=== PATIENT | male | born 1990 | race American Indian/Alaskan Native ===

== ENCOUNTER 2018-03-30 12:16 | Emergency (ER) | payer SELFPAY ==
[2018-03-30 12:38] VITALS: BP 117/56
[2018-03-30] MEDS ORDERED: MOTRIN PO ONE (13:02)
--- NOTE | 2018-03-30 13:32 | XRay Report ---
RIGHT HAND, 3 views: History: Hand injury. Normal bone mineralization. There is suggestion of a small avulsion fracture from the anterior base of the middle phalanx of the third digit. This is only identified on the lateral image. The remaining bony structures and joint spaces are intact. No erosive joint pathology. Mild soft tissue swelling is noted. Impression: Soft tissue swelling. Question of an avulsion fracture from the base of the middle phalanx of the third digit.
--- NOTE | 2018-03-30 13:32 | Emergency Department Report ---
ED Extremity Problem HPI - General Chief complaint: Extremity Injury, Upper Stated complaint: (R) HAND PAIN Time Seen by Provider: 03/30/18 13:00 Source: patient Mode of arrival: Ambulatory Limitations: No Limitations - History of Present Illness Initial comments: Is a 27-year-old male who accidentally hit his hand against another person's hand at work. Patient states he has swelling to the hand and some pain in the middle finger. Pain is 6 out of 10 in severity. This occurred approximately 24 hours ago. Severity scale (0 -10): 6 - Related Data Previous Rx's Medication Instructions Recorded Last Taken Type HYDROcodone/APAP 5-325 [Severance 1 each PO Q6HR PRN #10 tablet 04/01/15 Unknown Rx 5/325] cephALEXin [Keflex] 500 mg PO Q8H #21 capsule 04/01/15 Unknown Rx Ibuprofen [Motrin] 800 mg PO Q8HR PRN #20 tablet 03/30/18 Unknown Rx traMADol [Ultram] 50 mg PO Q6HR PRN #10 tablet 03/30/18 Unknown Rx Allergies Allergy/AdvReac Type Severity Reaction Status Date / Time No Known Allergies Allergy Unverified 03/31/15 20:39 ED Review of Systems ROS: Stated complaint: (R) HAND PAIN Other details as noted in HPI Comment: All other systems reviewed and negative ED Past Medical Hx - Past Medical History Previous Medical History?: No - Surgical History Past Surgical History?: No - Social History Smoking Status: Current Every Day Smoker Substance Use Type: None - Medications Home Medications: Home Medications Medication Instructions Recorded Confirmed Last Taken Type HYDROcodone/APAP 5-325 [Severance 1 each PO Q6HR PRN #10 tablet 04/01/15 Unknown Rx 5/325] cephALEXin [Keflex] 500 mg PO Q8H #21 capsule 04/01/15 Unknown Rx Ibuprofen [Motrin] 800 mg PO Q8HR PRN #20 tablet 03/30/18 Unknown Rx traMADol [Ultram] 50 mg PO Q6HR PRN #10 tablet 03/30/18 Unknown Rx ED Physical Exam - General Limitations: No Limitations General appearance: alert, in no apparent distress - Head Head exam: Present: atraumatic, normocephalic - Eye Eye exam: Present: normal appearance - ENT ENT exam: Present: mucous membranes moist - Neck Neck exam: Present: normal inspection - Respiratory Respiratory exam: Present: normal lung sounds bilaterally. Absent: respiratory distress - Cardiovascular Cardiovascular Exam: Present: regular rate, normal rhythm. Absent: systolic murmur, diastolic murmur, rubs, gallop - GI/Abdominal GI/Abdominal exam: Present: soft, normal bowel sounds - Rectal Rectal exam: Present: deferred - Extremities Exam Extremities exam: Present: normal inspection, tenderness (she did show some soft tissue swelling to the mid hand as well as some swelling to the right middle finger.), joint swelling - Back Exam Back exam: Present: normal inspection - Neurological Exam Neurological exam: Present: alert, oriented X3 - Psychiatric Psychiatric exam: Present: normal affect, normal mood - Skin Skin exam: Present: warm, dry, intact, normal color. Absent: rash ED Course Vital Signs 03/30/18 03/30/18 12:34 13:07 Temperature 98.5 F Pulse Rate 52 L Respiratory 18 18 Rate Blood Pressure 117/56 O2 Sat by Pulse 99 Oximetry ED Medical Decision Making - Radiology Data interpreted by me: X-ray of the right hand shows a small avulsion fracture at the proximal end of the right middle phalanx Critical care attestation.: If time is entered above; I have spent that time in minutes in the direct care of this critically ill patient, excluding procedure time. ED Disposition Clinical Impression: Finger fracture, right Qualifiers: Encounter type: initial encounter Finger: middle finger Fracture type: closed Phalanx: middle Fracture alignment: nondisplaced Qualified Code(s): S62.652A - Nondisplaced fracture of middle phalanx of right middle finger, initial encounter for closed fracture Disposition: TO HOME OR SELFCARE Is pt being admited?: No Does the pt Need Aspirin: No Condition: Stable Instructions: Finger Fracture (ED) Referrals: JOSE PUTNAM MD [Staff Physician] - 3-5 Days Time of Disposition: 13:31
== END 2018-03-30 13:40 | disposition home or self-care (01) ==
LOC: ED 12:16
DX: S62.652A Nondisplaced fracture of middle phalanx of right middle finger, initial encounter for closed fracture (principal); F17.200 Nicotine dependence, unspecified, uncomplicated; W51.XXXA Accidental striking against or bumped into by another person, initial encounter; Y93.89 Activity, other specified; Y99.0 Civilian activity done for income or pay; Y92.69 Other specified industrial and construction area as the place of occurrence of the external cause
CPT/HCPCS: 99283